=== PATIENT | female | born 1950 | race Caucasian/White ===

== ENCOUNTER 2017-01-26 12:29 | Day surgery (SDC) | payer MEDICARE ==
[~2017-01-26] VITALS: Ht 157.5 cm; Wt 70.0 kg
[~2017-01-26 12:29] MED LIST: ALBU1.25 NEB; AZIT500T77 PO; NAUSEA; PRED-402 PO; PRED10TA PO; TIOT18CA INH
[2017-01-26] MEDS ORDERED: SODIUM CHLORIDE 0.9% 1,000 ML IV SCH (13:06)
[2017-01-26 13:07] VITALS: BP 144/87
[2017-01-26] MEDS ORDERED: LIDOCAINE 1%, 20ML ONE (13:18)
[2017-01-26] MEDS ORDERED: PLEASE ENTER HEIGHT AND WEIGHT MC SCH (13:30)
[2017-01-26] MEDS ORDERED: MIDAZOLAM 1 MG/ML, 5ML ONE (14:08)
[2017-01-26] MEDS ORDERED: FLUMAZENIL 0.1 MG/1 ML, 5ML ONE (14:08)
[2017-01-26] MEDS ORDERED: NALOXONE 1 MG/ML, 2ML ONE (14:08)
[2017-01-26] MEDS ORDERED: FENTANYL PF 100 MCG/2ML ONE (14:08)
== END 2017-01-26 16:20 | disposition home or self-care (01) ==
LOC: OUT 12:29
PROVIDERS: ATTEND Internal Medicine Gastroenterology
DX: B18.2 Chronic viral hepatitis C (principal); J44.9 Chronic obstructive pulmonary disease, unspecified; F17.210 Nicotine dependence, cigarettes, uncomplicated
CPT/HCPCS: 36415; 47000; 76942; 82103; 85610; 88307; 88313; 99156; 99157; J2250; J3010; J3490; J7030; J2310

== ENCOUNTER 2018-02-12 09:08 | Inpatient (IN) | payer MEDICARE ==
[~2018-02-12] VITALS: Ht 157.5 cm; Wt 65.3 kg
[~2018-02-12 09:08] MED LIST changes: +AZIT500T5 PO; -AZIT500T77 PO; +DOXY100T PO; +FLUT1BLS INH; +IPRA3AMP INH; +IPRA3AMP NPPB; +LEVO75TA PO
[2018-02-12] MEDS ORDERED: PLEASE ENTER HEIGHT AND WEIGHT MC SCH (09:19)
[2018-02-12] MEDS ORDERED: ALBUTEROL/IPRATROPIUM 2.5MG/0.5MG, 3 ML NPPB SCH ×2 (09:30→14:00)
[2018-02-12] MEDS ORDERED: SODIUM CHLORIDE FLUSH 10ML SYR IVF ONE (09:30)
[2018-02-12 09:46] LABS: BASOPHILS # (AUTO) 0.01 x10^3/uL (0-0.1); BASOPHILS % (AUTO) 0 % (0-1); EOSINOPHILS # (AUTO) 0.03 x10^3/uL (0-0.4); EOSINOPHILS % (AUTO) 0 % (1-7); LYMPHOCYTES # (AUTO) 1.99 x10^3/uL (1-3.4); LYMPHOCYTES % (AUTO) 26 % (22-44); MD NO; MEAN CORPUSCULAR HEMOGLOBIN 32.1 pg (27.0-34.8); MEAN CORPUSCULAR HGB CONC 34.4 g/dL (32.4-35.8); MEAN CORPUSCULAR VOLUME 93.2 fL (80-100); MEAN PLATELET VOLUME 8.5 fL (7.4-10.4); MONOCYTES % (AUTO) 12 % (2-9); NEUTROPHILS # (AUTO) 4.67 x10^3/uL (1.8-6.8); NEUTROPHILS % (AUTO) 61 % (42-75); PLATELET COUNT 193 x10^3/uL (130-400); RED BLOOD COUNT 4.64 x10^6/uL (3.82-5.3); RED CELL DISTRIBUTION WIDTH 13.5 % (9.6-15.2)
[2018-02-12] MEDS ORDERED: ALBUTEROL/IPRATROPIUM 2.5MG/0.5MG, 3 ML ONE (09:47)
[2018-02-12 09:58] LABS: ALBUMIN 3.7 g/dL (3.4-5.0); ANION GAP 8 mmol/L (5-15); CALCIUM 8.7 mg/dL (8.5-10.1); CHLORIDE 107 mmol/L (98-107); CREATININE 0.66 mg/dL (0.55-1.02)
[2018-02-12] MEDS ORDERED: ALBUTEROL 0.5%, 20ML NPPB SCH (10:30)
[2018-02-12] MEDS ORDERED: SODIUM CHLORIDE 0.9% 1,000ML IVBOLUS ONE (10:30)
[2018-02-12] MEDS ORDERED: IPRATROPIUM 0.5 MG/2.5 ML INHA HHN SCH (12:30)
[2018-02-12] MEDS ORDERED: ACETAMINOPHEN 325 MG TABLET PO PRN (12:30)
[2018-02-12] MEDS ORDERED: hydrALAzine 20 MG/ML, 1ML IVPush PRN (12:30)
[2018-02-12 13:22] LABS: HEMOGLOBIN A1C 5.9 % (4.2-6.3)
[2018-02-12] MEDS: FLUTICASONE/VILANTEROL 200-25MCG/INH INH SCH (13:56)
[2018-02-12] MEDS: GUAIFENESIN ER 600 MG TABLET PO SCH ×2 (13:57→20:17)
[2018-02-12] MEDS: ENOXAPARIN 40 MG/0.4 ML SQ SCH (13:57)
[2018-02-12] MEDS: DOXYCYCLINE 100MG TABLET PO SCH ×2 (13:57→20:17)
[2018-02-12] MEDS ORDERED: ALBUTEROL/IPRATROPIUM 2.5MG/0.5MG, 3 ML NPPB PRN (14:00)
[2018-02-12 15:15] VITALS: BP 123/69
[2018-02-12 17:24] VITALS: BP 120/66
[2018-02-12] MEDS: ALBUTEROL/IPRATROPIUM 2.5MG/0.5MG, 3 ML NPPB SCH ×2 (18:53→22:40)
[2018-02-12 19:41] VITALS: BP 108/65
[2018-02-13] MEDS ORDERED: VANCOMYCIN PER PHARMACY MC PRN (00:30)
[2018-02-13 00:59] VITALS: BP 119/70
[2018-02-13] MEDS: VANCOMYCIN 1,200 MG in SODIUM CHLORIDE 0.9% 250 ML IV SCH (00:59)
[2018-02-13] MEDS ORDERED: PHARMACOKINETIC CONSULTATION MC ONE (01:00)
[2018-02-13] MEDS ORDERED: PHARMACOKINETIC MONITORING MC PRN (01:00)
[2018-02-13 01:18] LABS: BASOPHILS # (AUTO) 0.02 x10^3/uL (0-0.1); BASOPHILS % (AUTO) 0 % (0-1); EOSINOPHILS # (AUTO) 0.01 x10^3/uL (0-0.4); EOSINOPHILS % (AUTO) 0 % (1-7); LYMPHOCYTES # (AUTO) 1.39 x10^3/uL (1-3.4); LYMPHOCYTES % (AUTO) 22 % (22-44); MD NO; MEAN CORPUSCULAR HEMOGLOBIN 31.2 pg (27.0-34.8); MEAN CORPUSCULAR HGB CONC 33.4 g/dL (32.4-35.8); MEAN CORPUSCULAR VOLUME 93.3 fL (80-100); MEAN PLATELET VOLUME 8.3 fL (7.4-10.4); MONOCYTES # (AUTO) 0.99 x10^3/uL (0.2-0.8); MONOCYTES % (AUTO) 16 % (2-9); NEUTROPHILS # (AUTO) 3.86 x10^3/uL (1.8-6.8); NEUTROPHILS % (AUTO) 62 % (42-75); PLATELET COUNT 181 x10^3/uL (130-400); RED BLOOD COUNT 4.02 x10^6/uL (3.82-5.3); RED CELL DISTRIBUTION WIDTH 13.5 % (9.6-15.2)
[2018-02-13 01:29] LABS: ANION GAP 5 mmol/L (5-15); CALCIUM 8.8 mg/dL (8.5-10.1); CHLORIDE 108 mmol/L (98-107); CREATININE 0.73 mg/dL (0.55-1.02)
[2018-02-13] MEDS: ALBUTEROL/IPRATROPIUM 2.5MG/0.5MG, 3 ML NPPB SCH ×5 (02:38→19:25)
[2018-02-13 07:32] VITALS: BP 111/63
[2018-02-13] MEDS: FLUTICASONE/VILANTEROL 200-25MCG/INH INH SCH (08:06)
[2018-02-13] MEDS: GUAIFENESIN ER 600 MG TABLET PO SCH ×2 (08:07→20:20)
[2018-02-13] MEDS: DOXYCYCLINE 100MG TABLET PO SCH ×2 (08:07→20:20)
[2018-02-13 13:26] VITALS: BP 120/73
[2018-02-13] MEDS: ENOXAPARIN 40 MG/0.4 ML SQ SCH (14:01)
[2018-02-13 19:15] VITALS: BP 121/65
[2018-02-14] MEDS: VANCOMYCIN 1,200 MG in SODIUM CHLORIDE 0.9% 250 ML IV SCH (01:10)
[2018-02-14 01:13] VITALS: BP 134/80
[2018-02-14] MEDS: ALBUTEROL/IPRATROPIUM 2.5MG/0.5MG, 3 ML NPPB SCH ×5 (01:28→21:00)
[2018-02-14 07:28] LABS: BASOPHILS # (AUTO) 0.02 x10^3/uL (0-0.1); BASOPHILS % (AUTO) 0 % (0-1); EOSINOPHILS # (AUTO) 0.07 x10^3/uL (0-0.4); EOSINOPHILS % (AUTO) 1 % (1-7); LYMPHOCYTES % (AUTO) 31 % (22-44); MD NO; MEAN CORPUSCULAR HEMOGLOBIN 32.1 pg (27.0-34.8); MEAN CORPUSCULAR HGB CONC 34.2 g/dL (32.4-35.8); MEAN CORPUSCULAR VOLUME 93.9 fL (80-100); MEAN PLATELET VOLUME 8.3 fL (7.4-10.4); MONOCYTES # (AUTO) 0.89 x10^3/uL (0.2-0.8); MONOCYTES % (AUTO) 12 % (2-9); NEUTROPHILS # (AUTO) 4.04 x10^3/uL (1.8-6.8); NEUTROPHILS % (AUTO) 56 % (42-75); PLATELET COUNT 200 x10^3/uL (130-400); RED BLOOD COUNT 3.89 x10^6/uL (3.82-5.3); RED CELL DISTRIBUTION WIDTH 13.5 % (9.6-15.2)
[2018-02-14 07:39] LABS: ANION GAP 7 mmol/L (5-15); CALCIUM 9.1 mg/dL (8.5-10.1); CHLORIDE 107 mmol/L (98-107); CREATININE 0.67 mg/dL (0.55-1.02)
[2018-02-14 07:50] VITALS: BP 121/75
[2018-02-14] MEDS: GUAIFENESIN ER 600 MG TABLET PO SCH ×2 (08:10→20:12)
[2018-02-14] MEDS: FLUTICASONE/VILANTEROL 200-25MCG/INH INH SCH (08:10)
[2018-02-14] MEDS: DOXYCYCLINE 100MG TABLET PO SCH ×2 (08:10→20:12)
[2018-02-14 12:41] VITALS: BP 137/78
[2018-02-14] MEDS: ENOXAPARIN 40 MG/0.4 ML SQ SCH (14:30)
[2018-02-14 20:07] VITALS: BP 117/61
[2018-02-15 01:16] VITALS: BP 135/78
[2018-02-15] MEDS: VANCOMYCIN 1,200 MG in SODIUM CHLORIDE 0.9% 250 ML IV SCH (01:16)
[2018-02-15 05:09] LABS: BASOPHILS # (AUTO) 0.03 x10^3/uL (0-0.1); BASOPHILS % (AUTO) 1 % (0-1); EOSINOPHILS % (AUTO) 3 % (1-7); LYMPHOCYTES % (AUTO) 32 % (22-44); MD NO; MEAN CORPUSCULAR HEMOGLOBIN 31.8 pg (27.0-34.8); MEAN CORPUSCULAR HGB CONC 33.7 g/dL (32.4-35.8); MEAN CORPUSCULAR VOLUME 94.6 fL (80-100); MEAN PLATELET VOLUME 8.3 fL (7.4-10.4); MONOCYTES # (AUTO) 0.81 x10^3/uL (0.2-0.8); MONOCYTES % (AUTO) 12 % (2-9); NEUTROPHILS # (AUTO) 3.57 x10^3/uL (1.8-6.8); NEUTROPHILS % (AUTO) 52 % (42-75); PLATELET COUNT 194 x10^3/uL (130-400); RED BLOOD COUNT 3.79 x10^6/uL (3.82-5.3); RED CELL DISTRIBUTION WIDTH 13.3 % (9.6-15.2)
[2018-02-15 05:17] LABS: ANION GAP 5 mmol/L (5-15); CALCIUM 8.5 mg/dL (8.5-10.1); CHLORIDE 107 mmol/L (98-107)
[2018-02-15 05:25] LABS: CREATININE 0.75 mg/dL (0.55-1.02); FREE T4 (FREE THYROXINE) 1.04 ng/dL (0.76-1.46)
[2018-02-15] MEDS ORDERED: DOXY100T PO (06:56)
[2018-02-15] MEDS ORDERED: PRED20TA PO (06:56)
[2018-02-15] MEDS ORDERED: GUAI600T31 PO (06:56)
[2018-02-15 07:56] VITALS: BP 151/77
[2018-02-15] MEDS: GUAIFENESIN ER 600 MG TABLET PO SCH (08:03)
[2018-02-15] MEDS: DOXYCYCLINE 100MG TABLET PO SCH (08:03)
[2018-02-15] MEDS: FLUTICASONE/VILANTEROL 200-25MCG/INH INH SCH (08:03)
[2018-02-15] MEDS ORDERED: SODIUM CHLORIDE 0.9% IV ONE (08:30)
[2018-02-15] MEDS ORDERED: METHYLPREDNISOLONE SOD SUCC IV ONE (08:30)
[2018-02-15 13:16] VITALS: BP 132/76
[2018-02-15] MEDS: ENOXAPARIN 40 MG/0.4 ML SQ SCH (15:55)
== END 2018-02-15 17:40 | disposition home or self-care (01) | DRG 871 ==
LOC: ED 10:48 → EDIP 10:56 → 4NOR 13:42 → 4EST 16:55
PROVIDERS: ADMIT Internal Medicine; ATTEND Internal Medicine
DX: A41.9 Sepsis, unspecified organism (principal); J96.01 Acute respiratory failure with hypoxia; J44.1 Chronic obstructive pulmonary disease with (acute) exacerbation; F17.210 Nicotine dependence, cigarettes, uncomplicated; Z96.642 Presence of left artificial hip joint; R73.9 Hyperglycemia, unspecified; R00.0 Tachycardia, unspecified
CPT/HCPCS: 36415; 71045; 80048; 82040; 83036; 83605; 83735; 84100; 84439; 84443; 85025; 87040; 93005; 94640; 96360; 96361; J1650; J2930; J3370; J7620; J7030; J7050; J7512

== ENCOUNTER 2020-07-10 18:01 | Emergency (ER) | payer MEDICARE ==
[~2020-07-10] VITALS: Ht 157.5 cm; Wt 75.2 kg
[~2020-07-10 18:01] MED LIST changes: +ACET325T26 PO; +AZIT500T10 PO; -AZIT500T5 PO; +BENZ-17 PO; +GUAI600T31 PO; -IPRA3AMP INH; -IPRA3AMP NPPB; +IPRA3AMP30 INH; +IPRA3AMP30 NPPB; +LEVO25TA4 PO; +LEVO75TA5 PO; +PRED20TA PO; +VIT1CAPS42 PO
--- NOTE | 2020-07-10 18:39 | NUR ---
TO ROOM FROM LOBBY. NAD.
--- NOTE | 2020-07-10 19:11 | NUR ---
PT HERE FOR SOB WITH INCREASING FATIGUE. PT HAS HX OF COPD. PT DENIES INCREASED COUGH OR FEVER BUT SPOUSE HAS BEEN ILL AND SHE IS CONCERNED. VSS. PT HAS NO NEEDS AT THIS TIME. CALL LIGHT IN REACH
[2020-07-10 19:25] LABS: ALANINE AMINOTRANSFERASE 20 U/L (12-78); ANION GAP 5 mmol/L (5-15); CALCIUM 8.9 mg/dL (8.5-10.1); CHLORIDE 104 mmol/L (98-107); CREATININE 0.81 mg/dL (0.55-1.02)
[2020-07-10 19:26] LABS: BASOPHILS % (AUTO) 1 % (0-1); EOSINOPHILS % (AUTO) 2 % (1-7); LYMPHOCYTES % (AUTO) 15 % (22-44); MEAN CORPUSCULAR HEMOGLOBIN 30.8 pg (27.0-34.8); MEAN CORPUSCULAR HGB CONC 33.4 g/dL (32.4-35.8); MEAN PLATELET VOLUME 8.4 fL (7.4-10.4); MONOCYTES % (AUTO) 8 % (2-9); NEUTROPHILS % (AUTO) 75 % (42-75); PLATELET COUNT 239 x10^3/uL (130-400); RED BLOOD COUNT 4.31 x10^6/uL (3.82-5.3); RED CELL DISTRIBUTION WIDTH 14.1 % (9.6-15.2)
[2020-07-10 19:27] LABS: ALKALINE PHOSPHATASE 99 U/L (45-117); BILIRUBIN,TOTAL 0.3 mg/dL (0.2-1.0); MD NO; TOTAL PROTEIN 7.7 g/dL (6.4-8.2)
[2020-07-10 19:45] VITALS: BP 151/82
--- NOTE | 2020-07-10 19:45 | NUR ---
PT WANT TO LEAVE. NOTIFIED. PT ADVISED TO ISOLATE FOR 14 DAYS AND THAT SHE WILL BE CALLED WITH COVID RESULTS.
--- NOTE | 2020-07-10 20:23 | NUR ---
PT REFUSED TO WAIT FOR DISCHARGE PAPERS.
== END 2020-07-10 20:26 | disposition home or self-care (01) ==
LOC: ED 19:15
DX: R53.83 Other fatigue (principal); Z20.828 Contact with and (suspected) exposure to other viral communicable diseases; J44.9 Chronic obstructive pulmonary disease, unspecified
CPT/HCPCS: 36415; 71045; 80053; 85025; 87635; 93005; 99285